=== PATIENT | female | born 1970 | race Caucasian/White ===

== ENCOUNTER 2018-03-19 18:19 | Emergency (ER) | payer OTHER ==
[2018-03-19 18:28] VITALS: RESP 18; O2SAT 99
[2018-03-19 19:14] LABS: URINE BILIRUBIN NEGATIVE (NEGATIVE); URINE BLOOD 3+ (NEGATIVE); URINE COLOR YELLOW (YELLOW); URINE GLUCOSE (UA) NEGATIVE (Normal); URINE PROTEIN NEGATIVE (NEGATIVE)
[2018-03-19 19:15] LABS: URINE LEUKOCYTE ESTERASE NEGATIVE Leu/uL (Negative)
[2018-03-19 19:22] LABS: HCG,QUALITATIVE URINE NEGATIVE (NEGATIVE); URINE CLARITY Hazy (Clear)
[2018-03-19 19:23] LABS: SQUAMOUS EPITHIAL 4 /hpf (0-5)
[2018-03-19 20:01] LABS: BASO % 0.4 % (0.0-2.0); EOS # 0.2 K/uL (0.0-0.7); EOS % 3.2 % (0.0-4.0); LYMPH # 1.2 K/uL (1.0-4.3); MEAN CELL VOLUME 89.7 fL (81.0-99.0); MEAN CORPUSCULAR HGB CONC 33.5 g/dL (33.0-37.0); MEAN PLATELET VOLUME 8.5 fL (7.2-11.7); MONO # 0.4 K/uL (0.0-0.8); NEUT # 3.8 K/uL (1.8-7.0); NEUT % 67.4 % (50.0-75.0); NRBC % 0.1 % (0.0-2.0); RBC 4.32 Mil/uL (3.80-5.20); RED CELL DISTRIBUTION WIDTH 13.5 % (11.5-14.5); WHITE BLOOD COUNT 5.6 K/uL (4.8-10.8)
[2018-03-19 20:30] LABS: ALB/GLOB RATIO 1.4 (1.0-2.1); ALT/SGPT 24 U/L (9-52); AST/SGOT 21 U/L (14-36); BLOOD UREA NITROGEN 17 mg/dL (7-17); CALCIUM 9.3 mg/dl (8.6-10.4); GFR AFRICAN-AMERICAN > 60; GFR NON-AFRICAN AMERICAN > 60; LIPASE 78 U/L (23-300)
--- NOTE | 2018-03-19 20:36 | C.PDOC ---
History Of Present Illness 47 year old female presents to the ED complaining of vaginal spotting for 3 days and colicky epigastric pain. Patient denies any constipation, dysuria, fever, chills, back pain, nausea, vomiting, or any other associated symptoms. Patient reports her menstrual period is late. Time Seen by Provider: 03/19/18 18:54 Chief Complaint (Nursing): Female Genitourinary History Per: Patient History/Exam Limitations: no limitations Onset/Duration Of Symptoms: Days (3) Current Symptoms Are (Timing): Still Present Severity: Mild Location Of Pain/Discomfort: Epigastric Radiation Of Pain To:: None Quality Of Discomfort: "Pain" Associated Symptoms: Urinary Symptoms (vaginal spotting). denies: Fever, Nausea , Vomiting, Diarrhea, Back Pain Past Medical History Reviewed: Historical Data, Nursing Documentation, Vital Signs Vital Signs: Last Vital Signs Temp 98.5 F 03/19/18 21:02 Pulse 60 03/19/18 21:02 Resp 18 03/19/18 21:02 BP 127/85 03/19/18 21:02 Pulse Ox 99 03/20/18 00:45 - Medical History PMH: No Chronic Diseases Other Surgeries: Hx of surgeries Family History: States: No Known Family Hx - Social History Hx Alcohol Use: No Hx Substance Use: No Review Of Systems Except As Marked, All Systems Reviewed And Found Negative. Constitutional: Negative for: Fever, Chills Gastrointestinal: Positive for: Abdominal Pain (Epigastric pain ). Negative for : Nausea, Vomiting, Diarrhea Genitourinary: Positive for: Vaginal Bleeding (spotting ). Negative for: Dysuria Musculoskeletal: Negative for: Back Pain Physical Exam - Physical Exam Appears: Non-toxic, No Acute Distress, Other (Thin female ) Skin: Warm, Dry Head: Atraumatic, Normacephalic Eye(s): bilateral: Normal Inspection Nose: Normal Oral Mucosa: Moist Neck: Normal ROM, Supple Chest: Symmetrical Cardiovascular: Rhythm Regular, No Murmur Respiratory: Normal Breath Sounds, No Rales, No Rhonchi, No Wheezing Gastrointestinal/Abdominal: Tenderness (Mild epigastric tenderness), No Guarding , No Rebound, Other ((-) nur's sign, (-) mcburney's point) Extremity: Bilateral: Normal Color And Temperature, Normal ROM Neurological/Psych: Oriented x3, Normal Speech Gait: Steady ED Course And Treatment - Laboratory Results Result Diagrams: 03/19/18 19:49 03/19/18 19:49 Lab Interpretation: Normal (ua neg.) Urine POC: Negative O2 Sat by Pulse Oximetry: 99 (RA) Pulse Ox Interpretation: Normal - Radiology CXR: Interpreted by Me CXR Interpretation: Yes: No Acute Disease - Other Rad abd x 2 X-Ray: Interpreted by Me (increased stool R side.) Reevaluation Time: 20:35 Reassessment Condition: Improved Medical Decision Making Medical Decision Making: Impression: Vaginal spotting Orders: XR abdomen Labs are normal. Normal HGB, no preg. XR Abd shows chronic constipation. On reevaluation, patient is resting comfortably, abdomen remains soft, and patient is tolerating PO. Patient feels comfortable going home. Patient will be discharged home. normal labs, chronic constip (increased stool R side) vag spotting normal HGB, no preg Disposition Doctor Will See Patient In The: Office Counseled Patient/Family Regarding: Studies Performed, Diagnosis - Disposition Referrals: [facility] [Outside] [facility] [Outside] [facility] [Outside] [facility] [Outside] Disposition: HOME/ ROUTINE Disposition Time: 20:35 Condition: GOOD Additional Instructions: take a laxative now and re-evaluate your abdominal colic after moving your bowels 2-3 times diet and exercise changes follow-up in our outpatient Family Practice [facility] as needed. Instructions: Colic (DC), Gas and Bloating (ED) Forms: [facility] ([place]) - Clinical Impression Clinical Impression: Colicky periumbilical abdominal pain - Scribe Statement The provider has reviewed the documentation as recorded by the Scribe Provider Attestation: Dorinda Buckner All medical record entries made by the Scribe were at my direction and personally dictated by me. I have reviewed the chart and agree that the record accurately reflects my personal performance of the history, physical exam, medical decision making, and the department course for this patient. I have also personally directed, reviewed, and agree with the discharge instructions and disposition.
[2018-03-19 21:02] VITALS: BP 127/85; PULSE 60; TEMP 98.5
--- NOTE | 2018-03-20 08:49 | RAD ---
Date of service: 03/19/2018 PROCEDURE: Radiographs of the chest and abdomen (obstructive series) HISTORY: abd pain COMPARISON: No prior. TECHNIQUE: AP radiograph of the chest, with upright and supine radiographs of the abdomen. FINDINGS: CHEST: Lungs: Clear. Cardiovascular: Normal size heart. No pulmonary vascular congestion. Pleura: No pleural fluid. No pneumothorax. Other findings: None. ABDOMEN AND PELVIS: Bowel: Moderate stool retention. . No evidence of mechanical obstruction. Free air: None. Bones: Unremarkable. Other findings: None. IMPRESSION: No pulmonary infiltrate. Moderate stool retention. No mechanical obstruction appreciated.
== END 2018-03-19 21:02 | disposition home or self-care (01) ==
LOC: C.ER 18:19
DX: R10.33 Periumbilical pain (principal)

== ENCOUNTER 2018-07-28 15:09 | Emergency (ER) | payer OTHER ==
[2018-07-28 15:16] VITALS: BMI 23.0
[2018-07-28 15:21] VITALS: TEMP 98.2
[2018-07-28] MEDS ORDERED: Amoxicillin-Clav 875-125 mg Tab PO STA (16:55)
[2018-07-28] MEDS ORDERED: Amoxicillin-Clav 875-125 mg Tab PO ONE (17:07)
--- NOTE | 2018-07-28 17:40 | C.PDOC ---
History Of Present Illness Patient c/o nasal congestion, sinus pain, headache, yellow nasal discharge, sore throat radiating to both ears x 10 days. Patient faby fever, cough. Time Seen by Provider: 07/28/18 16:11 Chief Complaint (Nursing): Cough, Cold, Congestion History Per: Patient History/Exam Limitations: no limitations Past Medical History Reviewed: Historical Data, Nursing Documentation, Vital Signs Vital Signs: Last Vital Signs Temp 98.2 F 07/28/18 15:16 Pulse 70 07/28/18 15:16 Resp 17 07/28/18 15:16 BP 134/83 07/28/18 15:16 Pulse Ox 98 07/28/18 15:16 - Medical History PMH: No Chronic Diseases Family History: States: Unknown Family Hx - Social History Hx Alcohol Use: No Hx Substance Use: No - Immunization History Hx Tetanus Toxoid Vaccination: No Hx Influenza Vaccination: No Hx Pneumococcal Vaccination: No Review Of Systems Except As Marked, All Systems Reviewed And Found Negative. Physical Exam - Physical Exam Appears: Well, Non-toxic, No Acute Distress Skin: Normal Color, No Diaphoretic, No Rash Head: Atraumatic, Normacephalic Eye(s): bilateral: Normal Inspection, PERRL, EOMI Ear(s): Left: Normal, Right: TM Erythema Nose: Discharge (yellow), Tenderness (frontal and maxillary ) Throat: Erythema, No Exudate, No Drooling Neck: Normal, Normal ROM, Supple Cardiovascular: Rhythm Regular Respiratory: No Rales, No Rhonchi Gastrointestinal/Abdominal: Soft, No Tenderness Extremity: Normal ROM, No Tenderness Neurological/Psych: Oriented x3, Normal Speech, Normal Cognition, Cerebellar Signs, Normal Motor ED Course And Treatment O2 Sat by Pulse Oximetry: 98 Progress Note: Patient was treated with Augmentin po and Ibuprofen po. Disposition - Disposition Disposition: HOME/ ROUTINE Disposition Time: 17:53 Condition: STABLE Additional Instructions: Follow up with your PMD within 1-2 days. Return to ED if feel worse. Prescriptions: Amoxicillin/Clavulanate [Augmentin 875 MG-125 MG] 1 tab PO BID #20 tab Fluticasone Nasal [Flonase] 1 spr NS BID #1 spr Ibuprofen [Motrin Tab] 600 mg PO Q8 #30 tab - Clinical Impression Clinical Impression: Sinusitis
[2018-07-28 18:02] VITALS: BP 128/85; PULSE 67; RESP 18
[2018-07-28 18:10] VITALS: O2SAT 98
== END 2018-07-28 18:02 | disposition home or self-care (01) ==
LOC: C.ER 15:09
DX: J32.9 Chronic sinusitis, unspecified (principal)